=== PATIENT | male | born 1960 | race Caucasian/White ===

== ENCOUNTER 2021-07-18 16:15 | Emergency (ER) | payer OTHER ==
[~2021-07-18] VITALS: Ht 182.9 cm; Wt 113.4 kg
[~2021-07-18 16:15] MED LIST: ASPIRIN325 MG PO; BENICAR40 MG PO; LIPITOR TAB 2020 MG PO; PROTONIX40 MG PO; VITAMIN D 11000 UNIT PO
[2021-07-18 17:45] LABS: HEMOGLOBIN 11.3 gm/dl (14.0-17.5); RED BLOOD COUNT 4.4 M/UL (4.20-5.50); WHITE BLOOD COUNT 4.2 K/UL (4.5-11.0)
[2021-07-18 18:02] LABS: BUN/CREATININE RATIO 9 (0-10)
[2021-07-18] MEDS ORDERED: ZOFRAN4 MG PO (20:04)
== END 2021-07-18 20:24 | disposition home or self-care (01) ==
LOC: ER1 16:15
PROVIDERS: Nurse Practitioner
DX: U07.1 COVID-19 (principal); Z23 Encounter for immunization; Z88.0 Allergy status to penicillin
CPT/HCPCS: 80053; 85025; 99284; M0245